=== PATIENT | female | born 1965 | race Caucasian/White ===

== ENCOUNTER 2020-02-21 06:36 | Emergency (ER) | payer BC ==
[2020-02-21] MEDS ORDERED: Ciprofloxacin 0.3% Ophth Soln 5 ML Bottle EYERT ONE (07:16)
[2020-02-21] MEDS ORDERED: Ketorolac 0.5% Ophth Soln 5 ML Bottle EYERT ONE (07:25)
--- NOTE | 2020-02-21 07:26 | EDM.PDOC ---
ED HPI GENERAL MEDICAL PROBLEM - General Chief Complaint: ENT Problem Stated Complaint: FB IN EYE Time Seen by Provider: 02/21/20 07:16 Source of Information: Reports: Patient History Limitations: Reports: No Limitations - History of Present Illness INITIAL COMMENTS - FREE TEXT/NARRATIVE: 55-year-old female presents to the ED with severe right eye pain associated with photophobia and some increased mucus perhaps purulent debris this morning. She believes something blew into her eye as she rounded the corner of her house on Friday afternoon 2 days ago. The eyes continue to irritate her ever since. Taking out her contact lenses and cleaning them x2 did not seem to relieve the discomfort. Since 3:00 this morning she has been in significant discomfort right eye with increased mucus and purulent discharge. The eyes become increasingly photophobic. She has no problems with her left eye. Onset: Sudden Onset Date: 02/19/20 Onset Time: 15:00 Duration: Hour(s):, Getting Worse Location: Reports: Face (Right eye pain) Quality: Reports: Ache, Burning, Sharp, Stabbing, Throbbing, Other Severity: Severe (Photosensitive) Improves with: Reports: None Worsens with: Reports: None Context: Reports: Other (She felt initially a foreign body may have entered her eye on Friday with the wind blowing as it was.). Denies: Activity, Exercise, Lifting, Sick Contact, Trauma Associated Symptoms: Reports: Other (Excessive tearing from both eyes. Purulent debris right eye.) Treatments DISTRICT SUPERINTENDENT: Reports: Other (see below) ([place].) Right Eye Pain Score (Numeric/FACES): 10 - Related Data Allergies Allergy/AdvReac Type Severity Reaction Status Date / Time amoxicillin Allergy Severe Hives Verified 02/21/20 06:56 doxycycline Allergy Severe Hives Verified 02/21/20 06:55 erythromycin base Allergy Severe Hives Verified 02/21/20 06:55 morphine Allergy Severe Hives Verified 02/21/20 06:54 Penicillins Allergy Severe Hives Verified 02/21/20 06:55 Sulfa (Sulfonamide Allergy Severe Hives Verified 02/21/20 06:54 Antibiotics) Past Medical History Neurological History: Reports: Other (See Below) Other Neuro History: 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 - Infectious Disease History Infectious Disease History: Reports: Shingles - Past Surgical History HEENT Surgical History: Reports: Tonsillectomy GI Surgical History: Reports: Appendectomy, Cholecystectomy, Colonoscopy, Colostomy Social & Family History - Tobacco Use Smoking Status *Q: Never Smoker - Caffeine Use Caffeine Use: Reports: Coffee - Recreational Drug Use Recreational Drug Use: No - Living Situation & Occupation Living situation: Reports: Occupation: Employed ED ROS GENERAL - Review of Systems Review Of Systems: See Below Constitutional: Reports: Malaise, Weakness, Fatigue, Other (Has fibromyalgia syndrome). Denies: Fever, Chills HEENT: Reports: Contact Lenses, Eye Pain, Glasses (Right eye pain) Respiratory: Reports: No Symptoms Cardiovascular: Reports: No Symptoms Endocrine: Reports: No Symptoms GI/Abdominal: Reports: No Symptoms : Reports: No Symptoms Musculoskeletal: Reports: Muscle Pain (Noticed muscle discomfort) Neurological: Reports: No Symptoms Psychiatric: Reports: No Symptoms Hematologic/Lymphatic: Reports: No Symptoms Immunologic: Reports: No Symptoms ED EXAM GENERAL W FULL EYE - Physical Exam Exam: See Below Exam Limited By: Other General Appearance: Alert, WD/WN (Rare photophobia right eye.), Mild Distress, Other (A darkened room.) Eye Exam: Right Eye: Conjunctival Injection (Neurolysed conjunctival injection.) , Corneal Abrasion (Infected corneal abrasion 2.5 x 2.5 square near the center of the cornea.), Bilateral Eye: PERRL Eyelids: Right: Normal Appearance, Lid Everted for Exam Conjunctiva & Sclera: Right: Injected (Mildly.) Extraocular Movements: Bilateral: Intact Pupils: Normal Accommodation Pupillary Size: Bilateral: 5 mm (Patient has significant pain on contraction of the pupil on the right side in response to light in both the left and right eye. ) Pupillary Reaction: Bilateral: Brisk (Increased pain right eye with light shining into the left cornea.) Anterior Chamber: Left: Normal Appearance Posterior Chamber: Bilateral: Other (Not tolerate for endoscopy.) Course - Vital Signs Last Recorded V/S: Last Vital Signs Temp 36.4 C 02/21/20 06:46 Pulse 70 02/21/20 06:46 Resp 20 02/21/20 06:46 BP 161/127 H 02/21/20 06:46 Pulse Ox 100 02/21/20 06:46 - Orders/Labs/Meds Meds: Medications Discontinued Medications Generic Name Dose Route Start Last Admin Trade Name Freq PRN Reason Stop Dose Admin Ciprofloxacin 3 ml 02/21/20 07:16 Ciloxan 0.3% Ophth Soln EYERT 02/21/20 07:17 ONETIME ONE Ketorolac Tromethamine 3 ml 02/21/20 07:25 Acular 0.5% Ophth Soln EYERT 02/21/20 07:26 ONETIME ONE - Radiology Interpretation Free Text/Narrative:: 55-year-old female who wears contact lenses presents to the ED with suspected foreign body in her right eye. She states that she was walking around the corner of her house outside on a very windy day 2 days ago and something entered her eye. Since that time the eyes been painful and becoming more photophobic. She took her contact lens out and has washed it twice and replace it but she cannot tolerate it at this time. Since 0300 hrs. this morning the pain intensified with purulent or increased mucus discharge from the right eye. Nation no foreign bodies were identified under the eyelid or on the cornea or conjunctiva. There is significant corneal injection with no purulent debris identified. Slit-lamp examination reveals a corneal abrasion that I believe is becoming secondarily infected in the middle of the cornea on the right side. It measures 2.5 x 2.5 mm. Patient will be treated with Cipro ophthalmic drops 2 drops now then 1 drop every hour for the next 6 hours. Then 1 drop every 2 hours for 6 hours then 1 drop every 3 hours for 1 day then 1 drop every 4 hours for 1 day. She is to follow-up with belt builder helper tomorrow. She will also receive ketorolac ophthalmic drops 2 drops every 6 hours to relieve pain and inflammation. See no evidence of anterior chamber debris to suggest any anterior chamber inflammation. The eye or sclera itself is very tender to touch and the possibility of episcleritis exist. Thyroids were given at this time due to the evidence of infected corneal abrasion. Departure - Departure Time of Disposition: 07:26 Disposition: Home, Self-Care 01 Condition: Fair Clinical Impression: Infected corneal abrasion Qualifiers: Encounter type: initial encounter Laterality: right Qualified Code(s): S05.01XA - Injury of conjunctiva and corneal abrasion without foreign body, right eye, initial encounter - Discharge Information *PRESCRIPTION DRUG MONITORING PROGRAM REVIEWED*: Not Applicable *COPY OF PRESCRIPTION DRUG MONITORING REPORT IN PATIENT MARLEE: Not Applicable Referrals: Kristi Flores PA-C [Primary Care Provider] - Forms: ED Department Discharge, ED Return to Work/School Form Additional Instructions: Evaluation in the emergency room this morning in regards to development of severe right eye pain associated with increased mucus and perhaps purulent debris this morning. Still feeling was that something blew into your eye 2 days ago. Removal of contact this did not seem to relieve the discomfort. On examination this morning there is significant injection of the conjunctiva of the entire eye. The eye is extremely sensitive to light. Chamber is clear as is the posterior chamber. Slit lamp exam reveals a early infected corneal abrasion mid cornea measuring 2.5 mm x 2.5 mm almost in a square-like fashion. Admitted Cipro ophthalmic drops 1 drop to the right eye every hour for the next 6 hours then 1 drop every 2 hours for the next 6 hours then 1 drop every 3 hours for 1 day and then 1 drop every 4 hours for 1 day. Ketorolac drops 2 drops may be used every 6 hours to relieve pain and inflammation. This follow- up with belt builder helper tomorrow for recheck. Sepsis Event Note - Evaluation Sepsis Screening Result: No Definite Risk - Focused Exam Vital Signs: Vital Signs Temp Pulse Resp BP Pulse Ox 02/21/20 06:46 36.4 C 70 20 161/127 H 100 Date Exam was Performed: 02/21/20 Time Exam was Performed: 07:29
== END 2020-02-21 07:53 | disposition home or self-care (01) ==
LOC: JD.ED 06:36
DX: S05.01XA Injury of conjunctiva and corneal abrasion without foreign body, right eye, initial encounter (principal); Z88.1 Allergy status to other antibiotic agents; Z88.5 Allergy status to narcotic agent; Z88.0 Allergy status to penicillin; Z88.2 Allergy status to sulfonamides; X58.XXXA Exposure to other specified factors, initial encounter
CPT/HCPCS: 99283; A9270-GY